=== PATIENT | female | born 1985 | race Caucasian/White ===

== ENCOUNTER 2017-12-20 20:50 | Emergency (ER) | payer OTHER, MEDICAID ==
[2017-12-20] MEDS ORDERED: MOTRIN PO ONE (22:33)
[2017-12-20] MEDS ORDERED: BOOSTRIX IM ONE (23:08)
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
--- NOTE | 2017-12-21 00:09 | XRay Report ---
FINAL REPORT EXAM: XR KNEE 3V LT HISTORY: left knee pain TECHNIQUE: Five views of the left knee: AP, oblique and lateral projections. PRIORS: None. FINDINGS: There is no radiographic evidence of acute fracture or dislocation. Mild medial and patellofemoral compartment degenerative changes. Osseous mineralization is normal. IMPRESSION: No acute osseous abnormality. Mild medial and patellofemoral compartment degenerative changes.
--- NOTE | 2017-12-21 00:11 | XRay Report ---
FINAL REPORT EXAM: XR TIBIA FIBULA 2V LT HISTORY: left tib/fib pain TECHNIQUE: 4 views of the left tibia/fibula. PRIORS: None. FINDINGS: There is no radiographic evidence of acute fracture or dislocation. Mild medial and patellofemoral compartment degenerative changes. Small Achilles enthesophytes. IMPRESSION: No acute osseous abnormality. Mild medial and patellofemoral compartment degenerative changes.
[2017-12-21 01:15] VITALS: BP 118/69
== END 2017-12-21 01:14 | disposition home or self-care (01) ==
LOC: ED 20:50
DX: S56.912A Strain of unspecified muscles, fascia and tendons at forearm level, left arm, initial encounter (principal); S86.912A Strain of unspecified muscle(s) and tendon(s) at lower leg level, left leg, initial encounter; F17.200 Nicotine dependence, unspecified, uncomplicated; V89.2XXA Person injured in unspecified motor-vehicle accident, traffic, initial encounter; Y93.89 Activity, other specified; Y92.488 Other paved roadways as the place of occurrence of the external cause; Y99.8 Other external cause status
CPT/HCPCS: 90471; 90715; 99283

== ENCOUNTER 2018-10-29 09:50 | Emergency (ER) | payer MEDICAID, OTHER ==
[2018-10-29 09:57] VITALS: BP 134/60
--- NOTE | 2018-10-29 11:58 | Emergency Department Report ---
ED ENT HPI - General Chief complaint: Earache Stated complaint: HEADACHE/EAR ACHE Time Seen by Provider: 10/29/18 11:55 Source: patient Mode of arrival: Ambulatory Limitations: No Limitations - History of Present Illness MD complaint: ear pain -: days(s) (5) Location: L ear Severity: moderate Severity scale (0 -10): 4 Quality: aching Consistency: constant Improves with: NSAID Worsens with: none Associated Symptoms: denies: fever, cough, gum swelling - Related Data Previous Rx's Medication Instructions Recorded Last Taken Type Cyclobenzaprine [Flexeril] 10 mg PO QHS PRN #10 tablet 12/21/17 Unknown Rx Ibuprofen [Motrin] 600 mg PO Q8H PRN #30 tablet 12/21/17 Unknown Rx Amoxicillin/Potassium Clav 1 each PO BID #20 tablet 10/29/18 Unknown Rx [Augmentin 875-125 Tablet] Naproxen [Naprosyn] 500 mg PO BID #14 tablet 10/29/18 Unknown Rx Allergies Allergy/AdvReac Type Severity Reaction Status Date / Time No Known Allergies Allergy Unverified 12/20/17 21:15 ED Dental HPI - General Chief complaint: Earache Stated complaint: HEADACHE/EAR ACHE Time Seen by Provider: 10/29/18 11:55 Source: patient Mode of arrival: Ambulatory Limitations: No Limitations - Related Data Previous Rx's Medication Instructions Recorded Last Taken Type Cyclobenzaprine [Flexeril] 10 mg PO QHS PRN #10 tablet 12/21/17 Unknown Rx Ibuprofen [Motrin] 600 mg PO Q8H PRN #30 tablet 12/21/17 Unknown Rx Amoxicillin/Potassium Clav 1 each PO BID #20 tablet 10/29/18 Unknown Rx [Augmentin 875-125 Tablet] Naproxen [Naprosyn] 500 mg PO BID #14 tablet 10/29/18 Unknown Rx Allergies Allergy/AdvReac Type Severity Reaction Status Date / Time No Known Allergies Allergy Unverified 12/20/17 21:15 ED Review of Systems ROS: Stated complaint: HEADACHE/EAR ACHE Other details as noted in HPI Comment: All other systems reviewed and negative Constitutional: denies: chills, fever ENT: ear pain. denies: throat pain, dental pain, congestion Cardiovascular: denies: chest pain Gastrointestinal: denies: abdominal pain Musculoskeletal: denies: back pain Neurological: headache. denies: weakness, numbness, paresthesias, confusion, abnormal gait ED Past Medical Hx - Past Medical History Previous Medical History?: No - Surgical History Past Surgical History?: Yes Additional Surgical History: - Social History Smoking Status: Never Smoker Substance Use Type: None - Medications Home Medications: Home Medications Medication Instructions Recorded Confirmed Last Taken Type Cyclobenzaprine [Flexeril] 10 mg PO QHS PRN #10 tablet 12/21/17 Unknown Rx Ibuprofen [Motrin] 600 mg PO Q8H PRN #30 tablet 12/21/17 Unknown Rx Amoxicillin/Potassium Clav 1 each PO BID #20 tablet 10/29/18 Unknown Rx [Augmentin 875-125 Tablet] Naproxen [Naprosyn] 500 mg PO BID #14 tablet 10/29/18 Unknown Rx ED Physical Exam - General Limitations: No Limitations General appearance: alert, in no apparent distress - Head Head exam: Present: atraumatic, normocephalic, normal inspection - Eye Eye exam: Present: normal appearance - ENT ENT exam: Present: normal orophraynx, mucous membranes moist, other (left tympa gayle membrane erythema) - Neck Neck exam: Present: normal inspection, full ROM. Absent: tenderness, meningismus, lymphadenopathy, thyromegaly - Respiratory Respiratory exam: Present: normal lung sounds bilaterally - Cardiovascular Cardiovascular Exam: Present: regular rate, normal rhythm, normal heart sounds - GI/Abdominal GI/Abdominal exam: Present: soft. Absent: tenderness - Neurological Exam Neurological exam: Present: alert, oriented X3, CN II-XII intact, normal gait - Skin Skin exam: Present: warm, intact, normal color ED Course Vital Signs 10/29/18 09:55 Temperature 98.3 F Pulse Rate 91 H Respiratory 18 Rate Blood Pressure 134/60 [Left] O2 Sat by Pulse 98 Oximetry Critical care attestation.: If time is entered above; I have spent that time in minutes in the direct care of this critically ill patient, excluding procedure time. ED Disposition Clinical Impression: Left otitis media, Headache Disposition: DC-01 TO HOME OR SELFCARE Is pt being admited?: No Condition: Stable Instructions: Otitis Media (ED), Acute Headache (ED) Prescriptions: Amoxicillin/Potassium Clav [Augmentin 875-125 Tablet] 1 each PO BID #20 tablet Naproxen [Naprosyn] 500 mg PO BID #14 tablet Referrals: RAHAT RÍOSDALZELL MD STACIE [Primary Care Provider] - 3-5 Days
== END 2018-10-29 12:18 | disposition home or self-care (01) ==
LOC: ED 09:50
DX: H66.92 Otitis media, unspecified, left ear (principal); Z79.899 Other long term (current) drug therapy
CPT/HCPCS: 99281